=== PATIENT | female | born 1970 | race Caucasian/White ===

== ENCOUNTER 2016-12-31 17:12 | Emergency (ER) | payer SELFPAY ==
[2016-12-31 17:27] VITALS: BP 140/80
--- NOTE | 2016-12-31 17:45 | UC ---
Lower Extremity/Ankle HPI - HPI Summary HPI Summary: 46 y/o female presents ot the urgent care c/o of RT foot pain after his 140lb grandson run over her foot on a skateboard. Pt reports her pain is 8/10 with movement and 0/10 at rest. She feels numbness between #1 and #2 toes.. Pt resport being healthy previous to this incident. LMP: 12/25/2015 w/ Hx of B/L tubal ligation in 1994. Denies fever, SOB, chest pain, N/V/D - History of Current Complaint Chief Complaint: UCLowerExtremity Stated Complaint: RT FOOT INJURY Time Seen by Provider: 12/31/16 17:30 Hx Obtained From: Patient Hx Last Menstrual Period: 12/25/2015 ?: No Onset/Duration: Sudden Onset, Lasting Hours, Still Present Severity Initially: Moderate Severity Currently: Moderate Pain Intensity: 8 - with movement, 0/10 with rest Pain Scale Used: 0-10 Numeric Aggravating Factor(s): Ambulation Alleviating Factor(s): Rest Able to Bear Weight: No - due to pain - Risk Factors Gout Risk Factors: Age Over 40 DVT Risk Factors: Negative Septic Arthritis Risk Factor: Negative - Allergies/Home Medications Allergies/Adverse Reactions: Allergies Allergy/AdvReac Type Severity Reaction Status Date / Time No Known Allergies Allergy Verified 12/31/16 17:23 PMH/Surg Hx/FS Hx/Imm Hx Previously Healthy: Yes Respiratory History: Asthma - Surgical History Surgical History: Yes Surgery Procedure, Year, and Place: TUBAL LIGATION, APPENDECTOMY, LEEP PROCEDURE , T&A - Family History Known Family History: Positive: Diabetes Family History: Asthma - Social History Occupation: Employed Full-time Lives: With Family Alcohol Use: Daily Alcohol Amount: 3-4 drinks a day Substance Use Type: None Smoking Status (MU): Heavy Every Day Tobacco Smoker Type: Cigarettes Amount Used/How Often: 1PPD Have You Smoked in the Last Year: Yes Household Exposure Type: Cigarettes - Immunization History Most Recent Tetanus Shot: OVER 5 YEARS Review of Systems Constitutional: Negative Skin: Negative Eyes: Negative ENT: Negative Respiratory: Negative Cardiovascular: Negative Gastrointestinal: Negative Genitourinary: Negative Motor: Negative Neurovascular: Negative Musculoskeletal: Other: - RT foot pain with numbeness over Toe #1 and #2 Neurological: Negative Psychological: Negative All Other Systems Reviewed And Are Negative: Yes Physical Exam Triage Information Reviewed: Yes Appearance: Well-Appearing, No Pain Distress, Well-Nourished, Obese Vital Signs: Initial Vital Signs Temp 98.6 F 12/31/16 17:23 Pulse 102 12/31/16 17:23 Resp 16 12/31/16 17:23 BP 140/80 12/31/16 17:23 Pulse Ox 96 12/31/16 17:23 Vital Signs Reviewed: Yes Eye Exam: Normal Eyes: Positive: Conjunctiva Clear - PERRLA, EOMI, Fundi grossly normal ENT Exam: Normal ENT: Positive: Normal ENT inspection, Hearing grossly normal, Pharynx normal, TMs normal Dental Exam: Normal Neck exam: Normal Neck: Positive: Supple, Nontender, No Lymphadenopathy Respiratory Exam: Normal Respiratory: Positive: Chest non-tender, Lungs clear, Normal breath sounds Cardiovascular Exam: Normal Cardiovascular: Positive: RRR, No Murmur, Pulses Normal Abdominal Exam: Normal Abdomen Description: Positive: Nontender, No Organomegaly, Soft. Negative: CVA Tenderness (R), CVA Tenderness (L) Bowel Sounds: Positive: Present Musculoskeletal Exam: Normal Musculoskeletal: Positive: Strength Intact, ROM Intact, No Edema, Other: - RT foot ventral side with swelling and tenderness on sligt palpation, mild erythema , Decrease ROM of the #1 and 2 toes with swelling and tenderness. Good posterior tibiales and anterior pedis pulses of the RT foot. Good capillary refill. and sensation intact. Neurological Exam: Normal Psychological Exam: Normal Skin Exam: Normal Lower Extremity Course/Dx - Course Course Of Treatment: 46 y/o female presents ot the urgent care c/o of RT foot pain after his 140lb grandson run over her foot on a skateboard. Hx obtained. -PE abnormal findings:Decrease ROM of the #1 and 2 toes with swelling and tenderness. Good posterior tibiales and anterior pedis pulses of the RT foot. Good capillary refill. and sensation intact. RT foot X-rays ordered 3 views to r/o fracture. Impression:Normal radiography of RT foot. No fractures. Pt's placed on anton bandage and post-op shoe.After bandage RT Foot Neurovascular intact. Pt Rx Ibuprofen 800mg PO prn after meals. Advised RICE. Pt understood and agreed and left the clinic ambulating. - Differential Dx/Diagnosis Differential Diagnosis/HQI/PQRI: Dislocation, Fracture (Closed), Puncture Wound , Sprain, Strain, Tendonitis Provider Diagnoses: RT foot sprain - Physician Notifications Discussed Patient Care With: Alton Marquez - Dr Marquez agreed with Pt care and treatment. Discharge - Discharge Plan Condition: Stable Disposition: HOME Prescriptions: Ibuprofen TAB* [Motrin TAB* 800 MG] 800 mg PO Q6H #20 tab Patient Education Materials: Foot Sprain (ED) Referrals: Farzaneh Stewart PA [Physician Utilization Management Manager] - Additional Instructions: Please take medication as instructed after meals to alleviate pain and swelling. Apply RICE, especially elevate your leg at night time. and instructed in the educational material. If pain increases please return to the urgent care or f/u with your PCP for furhter evaluation and treatment.
--- NOTE | 2016-12-31 18:12 | RAD ---
INDICATION: Right foot ran over by skateboard COMPARISON: None. TECHNIQUE: 3 views of the right foot were obtained. FINDINGS: The adequately corticated bones are properly aligned. Joint spaces appear maintained. No fracture, dislocation or focal bony abnormality is seen. IMPRESSION: Normal radiograph of the right foot. If the patient's symptoms persist, follow-up imaging is recommended.
== END 2016-12-31 18:42 | disposition home or self-care (01) ==
LOC: UCCORT 17:12
DX: S93.601A Unspecified sprain of right foot, initial encounter (principal); W23.0XXA Caught, crushed, jammed, or pinched between moving objects, initial encounter; F17.210 Nicotine dependence, cigarettes, uncomplicated
CPT/HCPCS: 99212; G0463

== ENCOUNTER 2017-10-08 09:15 | Emergency (ER) | payer SELFPAY ==
[2017-10-08 09:33] VITALS: BP 154/96
--- NOTE | 2017-10-08 09:58 | UC ---
Lower Extremity/Ankle HPI - HPI Summary HPI Summary: DTPI right pinky toe - underneath. on feet all of the time. no injury tender at times but no drainage blister filled at this time. started a few days ago no tx done to it. - History of Current Complaint Chief Complaint: UCSkin Stated Complaint: RIGHT PINKY TOE COMPLAINT Time Seen by Provider: 10/08/17 09:51 Hx Obtained From: Patient Hx Last Menstrual Period: may ?: No Onset/Duration: Sudden Onset Severity Initially: Moderate Severity Currently: Moderate Pain Intensity: 3 Aggravating Factor(s): Standing Alleviating Factor(s): Nothing Able to Bear Weight: Yes - Risk Factors Gout Risk Factors: Age Over 40 - Allergies/Home Medications Allergies/Adverse Reactions: Allergies Allergy/AdvReac Type Severity Reaction Status Date / Time No Known Allergies Allergy Verified 10/08/17 09:25 Home Medications: Home Medications Antibiotic Ointment 1 applic TOPICAL BID 10/08/17 [History] Ibuprofen TAB* [Advil TAB*] 200 mg PO Q6H PRN 10/08/17 [History Confirmed ] PMH/Surg Hx/FS Hx/Imm Hx Previously Healthy: Yes - Surgical History Surgical History: Yes Surgery Procedure, Year, and Place: TUBAL LIGATION, APPENDECTOMY, LEEP PROCEDURE , T&A - Family History Known Family History: Positive: Diabetes Family History: Asthma - Social History Occupation: Employed Full-time Lives: With Family Alcohol Use: Daily Alcohol Amount: 3-4 beers a day Substance Use Type: None Smoking Status (MU): Heavy Every Day Tobacco Smoker Type: Cigarettes Amount Used/How Often: 1/2 PPD Have You Smoked in the Last Year: Yes Household Exposure Type: Cigarettes - Immunization History Most Recent Tetanus Shot: OVER 5 YEARS Review of Systems Constitutional: Negative Skin: Other - DTPI under right pinky toe - blister present Eyes: Negative ENT: Negative Respiratory: Negative Cardiovascular: Negative Gastrointestinal: Negative Genitourinary: Negative Musculoskeletal: Myalgia Neurological: Negative Psychological: Negative Is Patient Immunocompromised?: No All Other Systems Reviewed And Are Negative: Yes Physical Exam Triage Information Reviewed: Yes Vital Signs: Initial Vital Signs Temp 97.8 F 10/08/17 09:28 Pulse 97 10/08/17 09:28 Resp 18 10/08/17 09:28 BP 154/96 10/08/17 09:28 Pulse Ox 100 10/08/17 09:28 Vital Signs Reviewed: Yes Eye Exam: Normal Respiratory Exam: Normal Cardiovascular Exam: Normal Musculoskeletal Exam: Normal Skin Exam: Other - DTPI under right pinky to - blister present Lower Extremity Course/Dx - Course Course Of Treatment: keep area - right pinky toe dry at all times may put dressing over it will heal on its own over the next week. f/u prn - Differential Dx/Diagnosis Provider Diagnoses: DTPI - under right pinky toe Discharge - Sign-Out/Discharge Documenting (check all that apply): Discharge - Discharge Plan Condition: Good Disposition: HOME Patient Education Materials: Blister (ED) Referrals: No Primary Care Phys,NOPCP [Primary Care Provider] - 1 Week (PCP referral ) - Billing Disposition and Condition Condition: GOOD Disposition: HOME
== END 2017-10-08 10:15 | disposition home or self-care (01) ==
LOC: UCCORT 09:15
DX: L89.899 Pressure ulcer of other site, unspecified stage (principal); F17.210 Nicotine dependence, cigarettes, uncomplicated
CPT/HCPCS: 99212; G0463